=== PATIENT | male | born 1935 | race Caucasian/White ===

== ENCOUNTER → 2019-01-07 | Outpatient (REF) | payer MEDICARE ==
[2019-01-07 12:27] LABS: INTERNATIONAL NORMALIZED RATIO 3.7 RATIO (0.7-1.3); PROTHROMBIN TIME 38.1 SECONDS (9.0-12.5)
== END | disposition home or self-care (01) ==
LOC: LAB 10:33
DX: I48.91 Unspecified atrial fibrillation (principal); Z79.01 Long term (current) use of anticoagulants

== ENCOUNTER → 2019-01-21 | Outpatient (REF) | payer MEDICARE ==
[2019-01-21 11:28] LABS: INTERNATIONAL NORMALIZED RATIO 3.5 RATIO (0.7-1.3); PROTHROMBIN TIME 35.8 SECONDS (9.0-12.5)
== END | disposition home or self-care (01) ==
LOC: LAB 10:35
DX: I48.91 Unspecified atrial fibrillation (principal); Z79.01 Long term (current) use of anticoagulants